=== PATIENT | male | born 1995 | race Caucasian/White ===

== ENCOUNTER 2019-03-21 16:23 | Emergency (ER) | payer BC ==
[~2019-03-21] VITALS: Ht 172.7 cm; Wt 90.0 kg
[~2019-03-21 16:23] MED LIST: [UNRECOGNIZED DRUG - REMARK]
[2019-03-21 16:33] VITALS: BP 106/56
[2019-03-21] MEDS ORDERED: SODIUM CHLORIDE 0.9% 1,000 ML IV ONE (16:44)
[2019-03-21] MEDS ORDERED: ONDANSETRON HCL 4MG/2ML INJ IV ONE (16:45)
== END 2019-03-21 17:54 | disposition left against medical advice (07) ==
LOC: ER 16:23
DX: T40.1X1A Poisoning by heroin, accidental (unintentional), initial encounter (principal); Y92.59 Other trade areas as the place of occurrence of the external cause
CPT/HCPCS: 99283; J7030